=== PATIENT | female | born 1955 | race Caucasian/White ===

== ENCOUNTER → 2020-10-12 | Day surgery (SDC) | payer OTHER ==
[2020-10-08 09:43] LABS: BASOPHILS % 0.7 % (0.0-1.0); EOSINOPHILS # (AUTO) 0.1 (0.0-0.4); HEMATOCRIT 40.4 % (34.2-44.1); HEMOGLOBIN 12.5 g/dL (12.0-16.0); LYMPHOCYTES # (AUTO) 1.9 (1.0-3.2); LYMPHOCYTES % 32.2 % (18.0-39.1); MEAN CORPUSCULAR HEMOGLOBIN 27.2 pg (28-32); MEAN CORPUSCULAR HGB CONC 30.9 g/dL (31-35); MONOCYTES # (AUTO) 0.3 (0.2-0.8); MONOCYTES % 5.1 % (4.4-11.3); NEUTROPHILS # (AUTO) 3.5 (2.1-6.9); NEUTROPHILS % 60.7 % (38.7-80.0); PLATELET COUNT 241 x10e3/uL (140-360); RED BLOOD COUNT 4.59 x10e6/uL (3.6-5.1); RED CELL DISTRIBUTION WIDTH 21.6 % (11.7-14.4)
[~2020-10-12] MED LIST: BUSPIRONE HCL5 MG PO; CRESTOR10 MG PO; EFFEXOR XR150 MG PO; HYDROXYZINE HCL25 MG PO; LIDOCAINE HCL 2% LOCAL INJ 5 ML SDV VIAL INJ ONE; LOSARTAN-HCTZ1 EAC2 PO; MIDAZOLAM HCL 2 MG/2 ML VIAL ONE; OMEPRAZOLE40 MG PO; PROPOFOL IV EMULSION 10 MG/ML 20 ML VIAL ONE; SERTRALINE HCL100 MG PO; XIGDUO XR 5 MG1 EAC1 PO; ZOLPIDEM TARTRAT5 MG PO
[2020-10-12 08:52] VITALS: BP 124/74
== END | disposition home or self-care (01) ==
LOC: OR 06:10
PROVIDERS: ATTEND Internal Medicine Gastroenterology
DX: K29.50 Unspecified chronic gastritis without bleeding (principal); K20.80 Other esophagitis without bleeding; K21.9 Gastro-esophageal reflux disease without esophagitis; K44.9 Diaphragmatic hernia without obstruction or gangrene; Z98.84 Bariatric surgery status; D50.9 Iron deficiency anemia, unspecified; I10 Essential (primary) hypertension; E11.9 Type 2 diabetes mellitus without complications; F32.9 Major depressive disorder, single episode, unspecified; Z01.812 Encounter for preprocedural laboratory examination; Z87.891 Personal history of nicotine dependence
CPT/HCPCS: 36415; 43239; 82948; 85025; 88305; 88312; 88342; J2001; J2250

== ENCOUNTER → 2021-10-26 | Day surgery (SDC) | payer OTHER ==
[2021-10-24 09:26] LABS: BASOPHILS # (AUTO) 0.1 (0.0-0.1); BASOPHILS % 0.8 % (0.0-1.0); EOSINOPHILS # (AUTO) 0.1 (0.0-0.4); EOSINOPHILS % 1.4 % (0.0-6.0); HEMATOCRIT 40.6 % (34.2-44.1); HEMOGLOBIN 13.3 g/dL (12.0-16.0); LYMPHOCYTES # (AUTO) 2.1 (1.0-3.2); MEAN CORPUSCULAR HEMOGLOBIN 29.6 pg (28-32); MEAN CORPUSCULAR HGB CONC 32.8 g/dL (31-35); MEAN CORPUSCULAR VOLUME 90.4 fL (81-99); MONOCYTES # (AUTO) 0.4 (0.2-0.8); MONOCYTES % 6.3 % (4.4-11.3); NEUTROPHILS # (AUTO) 3.8 (2.1-6.9); PLATELET COUNT 233 x10e3/uL (140-360); RED BLOOD COUNT 4.49 x10e6/uL (3.6-5.1); RED CELL DISTRIBUTION WIDTH 13.2 % (11.7-14.4)
[2021-10-24 09:47] LABS: CALCIUM 8.6 mg/dL (8.4-10.2); CREATININE, SERUM 0.93 mg/dL (0.57-1.11)
[~2021-10-26] MED LIST changes: +BUPIVACAINE 0.25% 30ML SDV ONE; +FENTANYL CITRATE/PF 100MCG/2 ML INJ ONE; +GABAPENTIN100 MG PO; +GLYCOPYRROLATE INJ 0.2 MG/ML VIAL ONE; +POVIDONE IODINE 0.05% 0.05 % ML PO ONE; +XIGDUO XR 10 M1 EAC1 PO
[2021-10-26 14:30] VITALS: BP 146/81
== END | disposition home or self-care (01) ==
LOC: OR 10:19
PROVIDERS: ATTEND Podiatrist Foot & Ankle Surgery
DX: G57.51 Tarsal tunnel syndrome, right lower limb (principal); M62.471 Contracture of muscle, right ankle and foot; G47.33 Obstructive sleep apnea (adult) (pediatric); I10 Essential (primary) hypertension; H91.90 Unspecified hearing loss, unspecified ear; E78.2 Mixed hyperlipidemia; I20.8 Other forms of angina pectoris; I87.2 Venous insufficiency (chronic) (peripheral); E66.9 Obesity, unspecified; F32.A Depression, unspecified; Z01.812 Encounter for preprocedural laboratory examination; Z20.822 Contact with and (suspected) exposure to COVID-19; Z79.899 Other long term (current) drug therapy; Z68.34 Body mass index [BMI] 34.0-34.9, adult; Z86.2 Personal history of diseases of the blood and blood-forming organs and certain disorders involving the immune mechanism
CPT/HCPCS: 0223U; 36415; 71046; 80048; 82948; 85025; J0690; J2001; J2250; J3010

== ENCOUNTER 2021-12-29 14:53 | Outpatient (RCR) | payer OTHER ==
[~2021-12-29 14:53] MED LIST changes: -BUPIVACAINE 0.25% 30ML SDV ONE; -FENTANYL CITRATE/PF 100MCG/2 ML INJ ONE; -GLYCOPYRROLATE INJ 0.2 MG/ML VIAL ONE; -LIDOCAINE HCL 2% LOCAL INJ 5 ML SDV VIAL INJ ONE; -MIDAZOLAM HCL 2 MG/2 ML VIAL ONE; -POVIDONE IODINE 0.05% 0.05 % ML PO ONE; -PROPOFOL IV EMULSION 10 MG/ML 20 ML VIAL ONE
== END 2022-01-06 ==
LOC: PT 14:53
PROVIDERS: ATTEND Podiatrist Foot & Ankle Surgery
DX: G57.51 Tarsal tunnel syndrome, right lower limb (principal)

== ENCOUNTER → 2022-02-21 | Day surgery (SDC) | payer OTHER ==
[2022-02-15 10:30] LABS: BASOPHILS % 0.7 % (0.0-1.0); EOSINOPHILS # (AUTO) 0.1 (0.0-0.4); EOSINOPHILS % 1.2 % (0.0-6.0); HEMATOCRIT 41.1 % (34.2-44.1); HEMOGLOBIN 12.7 g/dL (12.0-16.0); LYMPHOCYTES % 33.4 % (18.0-39.1); MEAN CORPUSCULAR HEMOGLOBIN 28.3 pg (28-32); MEAN CORPUSCULAR HGB CONC 30.9 g/dL (31-35); MEAN CORPUSCULAR VOLUME 91.7 fL (81-99); MONOCYTES # (AUTO) 0.3 (0.2-0.8); MONOCYTES % 5.6 % (4.4-11.3); NEUTROPHILS # (AUTO) 3.4 (2.1-6.9); NEUTROPHILS % 57.9 % (38.7-80.0); PLATELET COUNT 252 x10e3/uL (140-360); RED BLOOD COUNT 4.48 x10e6/uL (3.6-5.1); RED CELL DISTRIBUTION WIDTH 13.9 % (11.7-14.4)
[~2022-02-21] MED LIST changes: +FENTANYL CITRATE/PF 100MCG/2 ML INJ ONE; +LIDOCAINE HCL 2% LOCAL INJ 5 ML SDV VIAL INJ ONE; +MULTI-VITAMIN1 EACH PO; +PROPOFOL IV EMULSION 10 MG/ML 20 ML VIAL ONE
[2022-02-21 08:41] VITALS: BP 136/67
== END | disposition home or self-care (01) ==
LOC: OR 07:16
PROVIDERS: ATTEND Internal Medicine Gastroenterology
DX: K29.70 Gastritis, unspecified, without bleeding (principal); Z86.010 Personal history of colon polyps; K57.30 Diverticulosis of large intestine without perforation or abscess without bleeding; K44.9 Diaphragmatic hernia without obstruction or gangrene; Z98.84 Bariatric surgery status; G47.30 Sleep apnea, unspecified; G62.9 Polyneuropathy, unspecified; I10 Essential (primary) hypertension; E11.9 Type 2 diabetes mellitus without complications; Z78.9 Other specified health status; Z01.810 Encounter for preprocedural cardiovascular examination; Z01.812 Encounter for preprocedural laboratory examination; Z79.84 Long term (current) use of oral hypoglycemic drugs; Z79.899 Other long term (current) drug therapy; Z68.34 Body mass index [BMI] 34.0-34.9, adult; Z80.0 Family history of malignant neoplasm of digestive organs
CPT/HCPCS: 36415; 43239; 45378; 82948; 85025; 88304; 88305; 88342; 93005; J2001; J3010